=== PATIENT | female | born 1960 | race Native Hawaiian/Other Pacific Islander ===

== ENCOUNTER 2023-09-22 21:35 | Inpatient (IN) | payer BC, OTHER ==
[~2023-09-22] VITALS: Ht 162.6 cm; Wt 81.6 kg
[2023-09-22 22:30] VITALS: BP 98/46; TEMP 98.2; O2SAT 95
[2023-09-22] MEDS ORDERED: ASPI81TA31 GT (22:55)
[2023-09-22] MEDS ORDERED: MAGN400O6 GT (22:55)
[2023-09-22] MEDS ORDERED: INSU100V28 SQ (22:55)
[2023-09-22] MEDS ORDERED: APIX5TAB GT (22:55)
[2023-09-22] MEDS ORDERED: MICA100V IV (22:55)
[2023-09-22] MEDS ORDERED: ASCO500C18 GT (22:55)
[2023-09-22] MEDS ORDERED: FLUO20CA36 GT (22:55)
[2023-09-22] MEDS ORDERED: TRIA60LO7 TP (22:55)
[2023-09-22] MEDS ORDERED: HYDR25CA GT (22:55)
[2023-09-22] MEDS ORDERED: CHOL400C8 GT (22:55)
[2023-09-22] MEDS ORDERED: ACET-2605 GT (22:55)
[2023-09-22] MEDS ORDERED: NEPHRO GT (22:55)
[2023-09-22] MEDS ORDERED: MIRT-121 GT (22:55)
[2023-09-22] MEDS ORDERED: AMIO400T5 GT (22:55)
[2023-09-22] MEDS ORDERED: CLOT30CR24 TP (22:55)
[2023-09-22] MEDS ORDERED: ATOR40TA GT (22:55)
[2023-09-22] MEDS ORDERED: PANT40SU2 GT (22:55)
[2023-09-22] MEDS ORDERED: HYDROXYZINE PAMOATE 25 MG CAPSULE GT PRN (23:30)
[2023-09-22] MEDS ORDERED: MAGNESIUM HYDROXIDE 30 ML LIQUID UDC GT PRN (23:30)
[2023-09-23] MEDS: NEPRO 1000 ML GT PRN ×2 (00:39→01:00)
[2023-09-23] MEDS ORDERED: NEPRO 1000 ML GT PRN (00:59)
[2023-09-23] MEDS: diphenhydrAMINE 50 MG/1 ML VIAL IV PRN (02:56)
[2023-09-23 04:53] VITALS: O2SAT 97
[2023-09-23] MEDS ORDERED: DEXTROSE 50% 50 ML DISP.SYRIN IV PRN (05:30)
[2023-09-23] MEDS ORDERED: HYDROXYZINE PAMOATE 25 MG CAPSULE GT PRN (05:30)
[2023-09-23 05:41] VITALS: BP 95/38; TEMP 98.8; O2SAT 94
[2023-09-23] MEDS: BLOOD SUGAR DIAGNOSTIC 1 EACH STRIP VI SCH (06:23)
[2023-09-23] MEDS ORDERED: INSULIN REGULAR, HUMAN 300 UNIT/3 ML VIAL SQ SCH (07:30)
[2023-09-23 07:33] LABS: BASOPHILS % (AUTO) 0.5 % (0.0-2.0); EOSINOPHILS # (AUTO) 0.3 K/uL (0.0-0.7); EOSINOPHILS % (AUTO) 5.5 % (0.0-7.0); HEMATOCRIT 27.3 % (31.2-41.9); HEMOGLOBIN 8.6 g/dL (10.9-14.3); LYMPHOCYTES # (AUTO) 0.6 K/uL (0.8-4.8); LYMPHOCYTES % (AUTO) 10.3 % (20.5-51.5); MEAN CORPUSCULAR HEMOGLOBIN 24.1 uug (24.7-32.8); MEAN CORPUSCULAR HGB CONC 31 g/dL (32.3-35.6); MEAN CORPUSCULAR VOLUME 76.5 fL (75.5-95.3); MONOCYTES # (AUTO) 0.8 K/uL (0.1-1.30); MONOCYTES % (AUTO) 13.8 % (0.0-11.0); NEUTROPHILS # (AUTO) 4.2 K/uL (1.8-8.9); NEUTROPHILS % (AUTO) 69.9 % (38.5-71.5); PLATELET COUNT (AUTO) 171 K/uL (179-408); RED BLOOD CELL COUNT(AUTO) 3.57 MIL/uL (3.63-4.92); RED CELL DISTRIBUTION WIDTH 25.6 % (12.3-17.7)
[2023-09-23 07:38] LABS: DIFFERENTIAL COMMENT 1
[2023-09-23 08:03] LABS: THYROID STIMULATING HORMONE 1.528 mIU/mL (0.358-3.740)
[2023-09-23 08:18] LABS: ALBUMIN 2.4 g/dL (3.4-5.0); BILIRUBIN,TOTAL 0.7 mg/dL (0.2-1.0); CALCIUM 8.7 mg/dL (8.5-10.1); CREATININE 2.9 mg/dL (0.6-1.3); MAGNESIUM 2.1 mg/dL (1.8-2.4); PHOSPHOROUS 1.9 mg/dL (2.5-4.9); POTASSIUM 3.2 mmol/L (3.5-5.1); TOTAL PROTEIN, SERUM 6.6 g/dL (6.4-8.2)
[2023-09-23 09:00] VITALS: BP 129/59; TEMP 98.1; O2SAT 96
[2023-09-23] MEDS ORDERED: APIXABAN 5 MG TABLET GT SCH (09:00)
[2023-09-23] MEDS: FLUOXETINE HCL 20 MG CAPSULE GT SCH (09:00)
[2023-09-23] MEDS ORDERED: TRIAMCINOLONE ACETONIDE 0.1% 60 ML BOTTLE TP SCH (09:00)
[2023-09-23] MEDS ORDERED: CLOTRIMAZOLE 1% CREAM 30 GM TUBE TP SCH (09:00)
[2023-09-23] MEDS ORDERED: ALBUTEROL SULFATE 2.5 MG/3 ML NEBU NEB PRN (10:00)
[2023-09-23] MEDS ORDERED: IPRATROPIUM BROMIDE 0.5 MG/2.5 ML NEBU NEB PRN (10:00)
[2023-09-23] MEDS: ASPIRIN 81 MG TAB.CHEW GT SCH (10:08)
[2023-09-23] MEDS: ASCORBIC ACID 500 MG TABLET GT SCH (10:08)
[2023-09-23] MEDS: CHOLECALCIFEROL 1,000 UNIT TABLET GT SCH (10:08)
[2023-09-23] MEDS: AMIODARONE HCL 200 MG TABLET GT SCH (10:13)
[2023-09-23] MEDS: PANTOPRAZOLE ORAL SUSPENSION 40 MG SUSPDR.PKT GT SCH (10:14)
[2023-09-23] MEDS: POTASSIUM CHLORIDE 10 MEQ TAB.PRT.SR PO ONE (10:17)
[2023-09-23] MEDS: FEXOFENADINE HCL 180 MG TABLET PO SCH (10:20)
[2023-09-23] MEDS: TRIAMCINOLONE ACET 0.1% CREAM 15 GM TUBE TP PRN (12:06)
[2023-09-23] MEDS: CLOTRIMAZOLE 1% CREAM 30 GM TUBE TP SCH (12:10)
[2023-09-23] MEDS: ONDANSETRON 4 MG/2 ML VIAL IV ONE (14:56)
[2023-09-23] MEDS: MICAFUNGIN SODIUM 100 MG in IV NORMAL SALINE 100 ML IV SCH (16:16)
[2023-09-23 16:43] VITALS: BP 105/46; TEMP 97.8; O2SAT 97
[2023-09-23] MEDS ORDERED: ONDANSETRON 4 MG/2 ML VIAL IV PRN (18:34)
[2023-09-23 20:00] VITALS: BP 104/49; TEMP 98.4; O2SAT 95
[2023-09-23] MEDS: APIXABAN 5 MG TABLET GT SCH (21:00)
[2023-09-23 22:45] VITALS: O2SAT 98
[2023-09-23] MEDS: ATORVASTATIN 40 MG TABLET GT SCH (23:28)
[2023-09-23] MEDS: MIRTAZAPINE 15 MG TABLET GT SCH (23:28)
[2023-09-24 04:03] VITALS: O2SAT 98
[2023-09-24] MEDS ORDERED: REMEDY ESSENTIAL ZINC PASTE 113 GM TOP PRN (05:30)
[2023-09-24] MEDS: diphenhydrAMINE 50 MG/1 ML VIAL IV ONE (05:47)
[2023-09-24 06:20] VITALS: BP 93/32; TEMP 97.9; O2SAT 95
[2023-09-24] MEDS: INSULIN REGULAR, HUMAN 300 UNIT/3 ML VIAL SQ PRN (08:27)
[2023-09-24 08:41] LABS: ABG BASE EXCESS 7.2 mmol/L (-2.0-2.0); ABG PCO2 47.2 mmHg (35.0-48.0); ABG PH 7.449 (7.340-7.440); ABG PO2 72.3 mmHg (75.0-100.0); ABG SITE RIGHT RADIAL; ABG TOTAL HEMOGLOBIN 9.3 G/dL (12.0-16.0); COHb 0.5 % (0.0-3.9); MetHb 0.3 % (0.0-1.5); O2Hb 93.9 % (94.0-97.0)
[2023-09-24] MEDS ORDERED: LORATADINE 10 MG TABLET PO SCH (09:00)
[2023-09-24] MEDS ORDERED: ONDANSETRON 4 MG/2 ML VIAL IV PRN (10:15)
[2023-09-24 16:23] VITALS: BP 107/42; TEMP 98.5; O2SAT 96; O2SAT 97
[2023-09-24 20:38] VITALS: BP 116/48; TEMP 98.3; O2SAT 96
[2023-09-24] MEDS ORDERED: MIRTAZAPINE 15 MG TABLET GT SCH (21:00)
[2023-09-24] MEDS: predniSONE 20 MG TABLET PO SCH (23:05)
[2023-09-25] MEDS ORDERED: hydrOXYzine HCL 25 MG TABLET ONE (00:32)
[2023-09-25] MEDS: hydrOXYzine HCL 25 MG TABLET PO ONE (01:23)
[2023-09-25] MEDS ORDERED: GUAIFENESIN/DEXTROMETHORPHAN 5 ML UDC PO PRN ×2 (02:00)
[2023-09-25] MEDS ORDERED: OLAN2.5T3 PO (05:09)
[2023-09-25 06:13] VITALS: BP 119/48; TEMP 98.2; O2SAT 95
[2023-09-25 07:34] LABS: EOSINOPHILS # (AUTO) 0.2 K/uL (0.0-0.7); LYMPHOCYTES # (AUTO) 0.4 K/uL (0.8-4.8); MONOCYTES # (AUTO) 0.4 K/uL (0.1-1.30); NEUTROPHILS # (AUTO) 0.2 K/uL (1.8-8.9); RED BLOOD CELL COUNT(AUTO) 3.44 MIL/uL (3.63-4.92)
[2023-09-25 07:36] LABS: BASOPHILS % (AUTO) 1.1 % (0.0-2.0); HEMATOCRIT 26.1 % (31.2-41.9); HEMOGLOBIN 8.3 g/dL (10.9-14.3); LYMPHOCYTES % (AUTO) 35.4 % (20.5-51.5); MEAN CORPUSCULAR HGB CONC 32 g/dL (32.3-35.6); MONOCYTES % (AUTO) 29.2 % (0.0-11.0); NEUTROPHILS % (AUTO) 19.3 % (38.5-71.5); PLATELET COUNT (AUTO) 194 K/uL (179-408)
[2023-09-25 07:40] LABS: DIFFERENTIAL COMMENT 1; WHITE BLOOD COUNT (AUTO) 1.2 K/uL (3.8-11.8)
[2023-09-25 07:42] LABS: ALBUMIN 2.3 g/dL (3.4-5.0); BILIRUBIN,TOTAL 0.8 mg/dL (0.2-1.0); CALCIUM 9.6 mg/dL (8.5-10.1); CREATININE 4.7 mg/dL (0.6-1.3); MAGNESIUM 2.4 mg/dL (1.8-2.4); PHOSPHOROUS 2.6 mg/dL (2.5-4.9); POTASSIUM 3.8 mmol/L (3.5-5.1); TOTAL PROTEIN, SERUM 6.2 g/dL (6.4-8.2)
[2023-09-25 08:47] LABS: BAND % (MANUAL) 2 % (0-10); EOSINOPHILS % (MANUAL) 12 % (0-8); LYMPHOCYTES % (MANUAL) 40 % (20-40); MONOCYTES % (MANUAL) 23 % (2-10); NEUTROPHILS % (MANUAL) 23 % (42-75); PLATELET ESTIMATE ADEQUATE
[2023-09-25 08:48] LABS: ANISOCYTOSIS 1+; HYPOCHROMASIA 1+
[2023-09-25 08:49] LABS: OVALOCYTES 1+
[2023-09-25] MEDS: LORATADINE 10 MG TABLET PO SCH (09:51)
[2023-09-25] MEDS ORDERED: REMEDY ESSENTIAL ZINC PASTE 113 GM TOP PRN (11:30)
[2023-09-25 16:00] VITALS: BP 93/49; TEMP 97.8; O2SAT 97
[2023-09-25] MEDS: INSULIN REGULAR, HUMAN 300 UNITS/3 ML VIAL SQ PRN (17:17)
[2023-09-25 19:55] VITALS: BP 111/44; TEMP 97.4; O2SAT 95
[2023-09-26 05:58] VITALS: BP 93/47; TEMP 97.6; O2SAT 97
[2023-09-26 07:37] LABS: BASOPHILS % (AUTO) 0.9 % (0.0-2.0); EOSINOPHILS # (AUTO) 1.5 K/uL (0.0-0.7); HEMATOCRIT 26.2 % (31.2-41.9); HEMOGLOBIN 8.3 g/dL (10.9-14.3); LYMPHOCYTES # (AUTO) 0.8 K/uL (0.8-4.8); LYMPHOCYTES % (AUTO) 21.7 % (20.5-51.5); MEAN CORPUSCULAR HEMOGLOBIN 24.1 uug (24.7-32.8); MEAN CORPUSCULAR HGB CONC 32 g/dL (32.3-35.6); MEAN CORPUSCULAR VOLUME 76.4 fL (75.5-95.3); MONOCYTES # (AUTO) 1.3 K/uL (0.1-1.30); MONOCYTES % (AUTO) 35.4 % (0.0-11.0); NEUTROPHILS # (AUTO) 0.1 K/uL (1.8-8.9); PLATELET COUNT (AUTO) 218 K/uL (179-408); RED BLOOD CELL COUNT(AUTO) 3.43 MIL/uL (3.63-4.92); RED CELL DISTRIBUTION WIDTH 25.1 % (12.3-17.7); WHITE BLOOD COUNT (AUTO) 3.8 K/uL (3.8-11.8)
[2023-09-26 07:40] LABS: DIFFERENTIAL COMMENT 1
[2023-09-26 07:47] LABS: CALCIUM 8.8 mg/dL (8.5-10.1); CREATININE 3.1 mg/dL (0.6-1.3); MAGNESIUM 2.2 mg/dL (1.8-2.4); PHOSPHOROUS 1.6 mg/dL (2.5-4.9)
[2023-09-26 07:52] LABS: POTASSIUM 2.8 mmol/L (3.5-5.1)
[2023-09-26 08:06] LABS: HEPATITIS B SURFACE AB, QUAL Reactive (.); HEPATITIS Be ANTIGEN Negative (Negative); HEPATITIS C VIRUS ANTIBODY Non Reactive (Non Reactive)
[2023-09-26] MEDS: POTASSIUM CHLORIDE 20 MEQ POWDER PACKET GT ONE (11:26)
[2023-09-26] MEDS: AMIODARONE HCL 200 MG TABLET PO SCH (11:27)
[2023-09-26 13:19] LABS: ANISOCYTOSIS 2+; EOSINOPHILS % (MANUAL) 44 % (0-8); HYPOCHROMASIA 1+; LYMPHOCYTES % (MANUAL) 28 % (20-40); MONOCYTES % (MANUAL) 22 % (2-10); NEUTROPHILS % (MANUAL) 6 % (42-75); PLATELET ESTIMATE ADEQUATE
[2023-09-26 16:00] VITALS: BP 114/53; TEMP 97.8; O2SAT 97
[2023-09-26] MEDS ORDERED: ONDANSETRON 4 MG/2 ML VIAL IV PRN (16:30)
[2023-09-26 18:06] LABS: CREATININE 3.7 mg/dL (0.6-1.3); POTASSIUM 3.7 mmol/L (3.5-5.1)
[2023-09-26 20:19] VITALS: BP 100/36; TEMP 98.4; O2SAT 93
[2023-09-26] MEDS: METOCLOPRAMIDE HCL 10 MG/2 ML VIAL IV ONE (22:56)
[2023-09-27 05:30] VITALS: BP 111/46; TEMP 98.3; O2SAT 94
[2023-09-27 07:38] LABS: ALBUMIN 2.3 g/dL (3.4-5.0); BILIRUBIN,TOTAL 0.8 mg/dL (0.2-1.0); CALCIUM 9.3 mg/dL (8.5-10.1); POTASSIUM 3.5 mmol/L (3.5-5.1); TOTAL PROTEIN, SERUM 6.2 g/dL (6.4-8.2)
[2023-09-27 16:28] VITALS: O2SAT 96
[2023-09-27 16:41] VITALS: BP 108/45; TEMP 99.2; O2SAT 97
[2023-09-27 20:00] VITALS: BP 109/43; TEMP 98.4; O2SAT 95
[2023-09-27 22:15] VITALS: O2SAT 98
[2023-09-28 04:07] VITALS: O2SAT 98
[2023-09-28 04:20] VITALS: BP 110/47; TEMP 98.5; O2SAT 92
[2023-09-28 07:21] LABS: ALBUMIN 2.3 g/dL (3.4-5.0); BILIRUBIN,TOTAL 0.8 mg/dL (0.2-1.0); CALCIUM 8.8 mg/dL (8.5-10.1); CREATININE 3.7 mg/dL (0.6-1.3); POTASSIUM 3.8 mmol/L (3.5-5.1); TOTAL PROTEIN, SERUM 6.7 g/dL (6.4-8.2)
[2023-09-28 16:33] VITALS: O2SAT 97
[2023-09-28 17:03] VITALS: BP 122/49; TEMP 98.2; O2SAT 96
[2023-09-29 05:35] VITALS: BP 114/50; TEMP 98; O2SAT 96
[2023-09-29 05:42] VITALS: O2SAT 98
[2023-09-29 07:55] LABS: ALBUMIN 2.2 g/dL (3.4-5.0); BILIRUBIN,TOTAL 0.7 mg/dL (0.2-1.0); CALCIUM 9.1 mg/dL (8.5-10.1); CREATININE 4.8 mg/dL (0.6-1.3); TOTAL PROTEIN, SERUM 6.6 g/dL (6.4-8.2)
[2023-09-29 08:18] VITALS: BP 109/52; TEMP 97.8; O2SAT 95
[2023-09-29] MEDS ORDERED: FLUOXETINE HCL 20 MG CAPSULE GT SCH (09:00)
[2023-09-29] MEDS ORDERED: ACETAMINOPHEN 650 MG/20.3 ML LIQUID UDC GT PRN (09:00)
[2023-09-29] MEDS ORDERED: ACETAMINOPHEN 325 MG TABLET PO PRN (09:00)
[2023-09-29] MEDS: ACETAMINOPHEN 650 MG/20.3 ML LIQUID UDC PO PRN (09:52)
[2023-09-29 16:02] VITALS: BP 100/52; TEMP 96.6; O2SAT 95
[2023-09-29] MEDS ORDERED: DIATR MEGLU/DIATRIZOATE SODIUM 30 ML BOTTLE ONE (19:49)
[2023-09-29 20:38] VITALS: BP 93/48; TEMP 97.7; O2SAT 97
[2023-09-30 04:23] VITALS: O2SAT 98
[2023-09-30 06:00] VITALS: BP 104/49; TEMP 97.5; O2SAT 97
[2023-09-30 06:42] LABS: ALBUMIN 2.3 g/dL (3.4-5.0); BILIRUBIN,TOTAL 0.6 mg/dL (0.2-1.0); CREATININE 3.5 mg/dL (0.6-1.3); PHOSPHOROUS 2.3 mg/dL (2.5-4.9); POTASSIUM 3.9 mmol/L (3.5-5.1); TOTAL PROTEIN, SERUM 7.1 g/dL (6.4-8.2)
[2023-09-30 06:46] LABS: CALCIUM 9.2 mg/dL (8.5-10.1)
[2023-09-30 06:56] LABS: BASOPHILS # (AUTO) 0.1 K/UL (0.0-0.2); BASOPHILS % (AUTO) 1.2 % (0.0-2.0); EOSINOPHILS # (AUTO) 1.4 K/uL (0.0-0.7); EOSINOPHILS % (AUTO) 15.2 % (0.0-7.0); HEMATOCRIT 30.5 % (31.2-41.9); HEMOGLOBIN 9.6 g/dL (10.9-14.3); LYMPHOCYTES # (AUTO) 1.1 K/uL (0.8-4.8); LYMPHOCYTES % (AUTO) 12.2 % (20.5-51.5); MEAN CORPUSCULAR HEMOGLOBIN 23.8 uug (24.7-32.8); MEAN CORPUSCULAR HGB CONC 31 g/dL (32.3-35.6); MEAN CORPUSCULAR VOLUME 75.8 fL (75.5-95.3); MONOCYTES # (AUTO) 1.8 K/uL (0.1-1.30); NEUTROPHILS # (AUTO) 4.9 K/uL (1.8-8.9); NEUTROPHILS % (AUTO) 52.4 % (38.5-71.5); PLATELET COUNT (AUTO) 169 K/uL (179-408); RED BLOOD CELL COUNT(AUTO) 4.02 MIL/uL (3.63-4.92); RED CELL DISTRIBUTION WIDTH 24.1 % (12.3-17.7); WHITE BLOOD COUNT (AUTO) 9.3 K/uL (3.8-11.8)
[2023-09-30 06:57] LABS: DIFFERENTIAL COMMENT 1
[2023-09-30] MEDS ORDERED: CALAMINE LOTION 120 ML BOTTLE TOP PRN (08:00)
[2023-09-30 08:23] LABS: BAND % (MANUAL) 19 % (0-10); EOSINOPHILS % (MANUAL) 17 % (0-8); LYMPHOCYTES % (MANUAL) 15 % (20-40); METAMYELOCYTES % 2 % (0-1); MONOCYTES % (MANUAL) 13 % (2-10); MYELOCYTES % 3 % (0-0); NEUTROPHILS % (MANUAL) 31 % (42-75); PLATELET ESTIMATE ADEQUATE
[2023-09-30 08:25] LABS: ANISOCYTOSIS 2+
[2023-09-30 08:26] LABS: OVALOCYTES 1+
[2023-09-30 08:27] LABS: HYPOCHROMASIA 1+
[2023-09-30] MEDS ORDERED: AMIODARONE HCL 200 MG TABLET PO SCH (09:00)
[2023-09-30] MEDS: METOCLOPRAMIDE HCL 10 MG/2 ML VIAL IV PRN (12:11)
[2023-09-30 16:30] VITALS: BP 109/51; TEMP 97.8; O2SAT 98
[2023-09-30] MEDS: NEUTRA PHOS PACKET PO ONE (17:39)
[2023-09-30 19:40] VITALS: BP 117/52; TEMP 97.8; O2SAT 96
[2023-09-30 22:11] VITALS: O2SAT 98
[2023-10-01 00:12] VITALS: O2SAT 98
[2023-10-01 06:02] VITALS: BP 117/54; TEMP 98.9; O2SAT 96
[2023-10-01 08:40] LABS: LYMPHOCYTES # (AUTO) 1.4 K/uL (0.8-4.8)
[2023-10-01 08:45] LABS: BASOPHILS # (AUTO) 0.1 K/UL (0.0-0.2); BASOPHILS % (AUTO) 0.9 % (0.0-2.0); EOSINOPHILS # (AUTO) 1.4 K/uL (0.0-0.7); EOSINOPHILS % (AUTO) 11.4 % (0.0-7.0); HEMATOCRIT 31.2 % (31.2-41.9); HEMOGLOBIN 9.8 g/dL (10.9-14.3); LYMPHOCYTES % (AUTO) 10.9 % (20.5-51.5); MEAN CORPUSCULAR HEMOGLOBIN 23.5 uug (24.7-32.8); MEAN CORPUSCULAR HGB CONC 31 g/dL (32.3-35.6); MEAN CORPUSCULAR VOLUME 75.1 fL (75.5-95.3); MONOCYTES % (AUTO) 16.3 % (0.0-11.0); NEUTROPHILS # (AUTO) 7.5 K/uL (1.8-8.9); NEUTROPHILS % (AUTO) 60.5 % (38.5-71.5); PLATELET COUNT (AUTO) 193 K/uL (179-408); RED BLOOD CELL COUNT(AUTO) 4.15 MIL/uL (3.63-4.92); RED CELL DISTRIBUTION WIDTH 23.9 % (12.3-17.7); WHITE BLOOD COUNT (AUTO) 12.4 K/uL (3.8-11.8)
[2023-10-01 08:47] LABS: ALBUMIN 2.5 g/dL (3.4-5.0); BILIRUBIN,DIRECT 0.3 mg/dL (0.0-0.2); BILIRUBIN,TOTAL 0.6 mg/dL (0.2-1.0); CALCIUM 9.6 mg/dL (8.5-10.1); CREATININE 4.8 mg/dL (0.6-1.3); POTASSIUM 4.2 mmol/L (3.5-5.1)
[2023-10-01 08:55] LABS: DIFFERENTIAL COMMENT 1
[2023-10-01 14:00] VITALS: O2SAT 98
[2023-10-01 15:43] VITALS: BP 100/48; TEMP 97.6; O2SAT 96
[2023-10-01 17:31] LABS: BAND % (MANUAL) 12 % (0-10); EOSINOPHILS % (MANUAL) 8 % (0-8); LYMPHOCYTES % (MANUAL) 13 % (20-40); METAMYELOCYTES % 8 % (0-1); MONOCYTES % (MANUAL) 20 % (2-10); NEUTROPHILS % (MANUAL) 19 % (42-75)
[2023-10-01 17:32] LABS: HYPOCHROMASIA 1+; MYELOCYTES % 8 % (0-0); PLATELET ESTIMATE ADEQUATE; PROMYELOCYTES % 12 %
[2023-10-01 17:33] LABS: ANISOCYTOSIS 3+
[2023-10-01 20:01] VITALS: BP 114/61; TEMP 97.4; O2SAT 96
[2023-10-02] VITALS (7 sets, daily range): BP systolic 106–138; BP diastolic 48–60; TEMP 97.5–98.1; O2SAT 94–99
[2023-10-02 06:43] LABS: CREATININE 3.5 mg/dL (0.6-1.3); POTASSIUM 3.6 mmol/L (3.5-5.1)
[2023-10-02 07:07] LABS: HEPATITIS A AB, IgM Negative (Negative); HEPATITIS A AB, TOTAL Positive (Negative); HEPATITIS B CORE AB, IgM Negative (Negative); HEPATITIS B CORE AB, TOTAL Negative (Negative); HEPATITIS B SURFACE AB, QUAL Reactive (.); HEPATITIS B SURFACE AG Negative (Negative)
[2023-10-02] MEDS ORDERED: APIXABAN 2.5 MG TABLET PO SCH (09:15)
[2023-10-02] MEDS: APIXABAN 5 MG TABLET GT SCH (10:03)
[2023-10-03 07:12] LABS: CALCIUM 9.9 mg/dL (8.5-10.1); CREATININE 5.1 mg/dL (0.6-1.3)
[2023-10-03 07:18] LABS: ALBUMIN 2.6 g/dL (3.4-5.0); BILIRUBIN,DIRECT 0.2 mg/dL (0.0-0.2); BILIRUBIN,TOTAL 0.6 mg/dL (0.2-1.0)
[2023-10-03 07:25] VITALS: BP 117/50; TEMP 98; O2SAT 95
[2023-10-03 15:17] VITALS: BP 110/44; TEMP 97.7; O2SAT 96
[2023-10-03 20:00] VITALS: BP 107/58; TEMP 97.9; O2SAT 98
[2023-10-04 01:50] VITALS: O2SAT 97
[2023-10-04 06:03] VITALS: BP 112/54; TEMP 97.9; O2SAT 94
[2023-10-04 06:43] LABS: CALCIUM 9.3 mg/dL (8.5-10.1); POTASSIUM 3.8 mmol/L (3.5-5.1)
[2023-10-04 06:54] LABS: ALBUMIN 2.6 g/dL (3.4-5.0); BILIRUBIN,DIRECT 0.2 mg/dL (0.0-0.2); BILIRUBIN,TOTAL 0.7 mg/dL (0.2-1.0); TOTAL PROTEIN, SERUM 6.8 g/dL (6.4-8.2)
[2023-10-04 16:22] VITALS: BP 107/51; TEMP 98.1; O2SAT 98
[2023-10-04 20:10] VITALS: BP 120/74; TEMP 97.8; O2SAT 97
[2023-10-04] MEDS: CYCLOBENZAPRINE HCL 10 MG TABLET PO PRN (22:22)
[2023-10-05 00:36] VITALS: O2SAT 97
[2023-10-05 05:26] VITALS: BP 108/45; TEMP 97.6; O2SAT 96
[2023-10-05 06:35] LABS: CALCIUM 9.6 mg/dL (8.5-10.1); CREATININE 5.4 mg/dL (0.6-1.3); POTASSIUM 3.8 mmol/L (3.5-5.1)
[2023-10-05 06:41] LABS: ALBUMIN 2.6 g/dL (3.4-5.0); BILIRUBIN,DIRECT 0.2 mg/dL (0.0-0.2); BILIRUBIN,TOTAL 0.6 mg/dL (0.2-1.0); TOTAL PROTEIN, SERUM 6.5 g/dL (6.4-8.2)
[2023-10-05 08:14] VITALS: BP 105/69; TEMP 97.8
[2023-10-05 08:52] VITALS: BP 106/49; TEMP 97.8; O2SAT 98
[2023-10-05 16:14] VITALS: BP 104/50; TEMP 97.6; O2SAT 96
[2023-10-05] MEDS: ALBUMIN HUMAN 25% 100 ML IV PRN (16:37)
[2023-10-05 20:25] VITALS: BP 93/42; TEMP 97.7; O2SAT 98
[2023-10-06 06:13] VITALS: BP 93/46; TEMP 98.5; O2SAT 97
[2023-10-06 06:46] LABS: CALCIUM 9.3 mg/dL (8.5-10.1); CREATININE 3.2 mg/dL (0.6-1.3); POTASSIUM 3.7 mmol/L (3.5-5.1)
[2023-10-06] MEDS ORDERED: MIDAZOLAM HCL 2 MG/2 ML VIAL IV PRN (10:45)
[2023-10-06] MEDS ORDERED: FENTANYL CITRATE 100 MCG/2 ML AMPUL IV PRN (10:45)
[2023-10-06] MEDS ORDERED: NALOXONE HCL 0.4 MG/ML AMPUL IV PRN (11:00)
[2023-10-06] MEDS: PROTEIN SUPPLEMENT (PROSTAT) 30 ML LIQUID GT SCH (13:28)
[2023-10-06 15:22] VITALS: O2SAT 97
[2023-10-06] MEDS: MORPHINE SULFATE 2 MG/1 ML DISP.SYRIN IVP PRN (15:41)
[2023-10-06 16:30] VITALS: BP 114/47; TEMP 98.2; O2SAT 95
[2023-10-06 20:00] VITALS: BP 99/46; TEMP 97.8; O2SAT 95
[2023-10-06 20:41] VITALS: O2SAT 97
[2023-10-07 00:16] VITALS: O2SAT 96
[2023-10-07 06:54] VITALS: BP 110/50; TEMP 97.8; O2SAT 96
[2023-10-07 07:08] LABS: BASOPHILS # (AUTO) 0.1 K/UL (0.0-0.2); BASOPHILS % (AUTO) 0.9 % (0.0-2.0); EOSINOPHILS # (AUTO) 1.4 K/uL (0.0-0.7); EOSINOPHILS % (AUTO) 12.8 % (0.0-7.0); HEMATOCRIT 27.9 % (31.2-41.9); HEMOGLOBIN 8.5 g/dL (10.9-14.3); LYMPHOCYTES # (AUTO) 1.2 K/uL (0.8-4.8); LYMPHOCYTES % (AUTO) 10.3 % (20.5-51.5); MEAN CORPUSCULAR HEMOGLOBIN 23.2 uug (24.7-32.8); MEAN CORPUSCULAR HGB CONC 31 g/dL (32.3-35.6); MEAN CORPUSCULAR VOLUME 76.1 fL (75.5-95.3); MONOCYTES # (AUTO) 1.6 K/uL (0.1-1.30); MONOCYTES % (AUTO) 14.2 % (0.0-11.0); NEUTROPHILS % (AUTO) 61.8 % (38.5-71.5); PLATELET COUNT (AUTO) 144 K/uL (179-408); RED BLOOD CELL COUNT(AUTO) 3.67 MIL/uL (3.63-4.92); RED CELL DISTRIBUTION WIDTH 23.7 % (12.3-17.7); WHITE BLOOD COUNT (AUTO) 11.3 K/uL (3.8-11.8)
[2023-10-07 07:23] LABS: BILIRUBIN,DIRECT 0.2 mg/dL (0.0-0.2); BILIRUBIN,TOTAL 0.7 mg/dL (0.2-1.0); CALCIUM 9.6 mg/dL (8.5-10.1); CREATININE 4.7 mg/dL (0.6-1.3); MAGNESIUM 2.4 mg/dL (1.8-2.4); PHOSPHOROUS 2.9 mg/dL (2.5-4.9); POTASSIUM 3.8 mmol/L (3.5-5.1); TOTAL PROTEIN, SERUM 6.8 g/dL (6.4-8.2)
[2023-10-07 07:27] LABS: DIFFERENTIAL COMMENT 1
[2023-10-07] MEDS ORDERED: AMIODARONE HCL 200 MG TABLET PO SCH (09:00)
[2023-10-07 16:47] VITALS: BP 105/56; TEMP 98.2; O2SAT 99
[2023-10-07 20:00] VITALS: BP 109/56; TEMP 98.2; O2SAT 96
[2023-10-08 00:26] VITALS: O2SAT 96
[2023-10-08 06:00] VITALS: BP 103/44; TEMP 97.9; O2SAT 94
[2023-10-08 09:14] VITALS: BP 91/40; TEMP 97.9; O2SAT 95
[2023-10-08] MEDS: APIXABAN 5 MG TABLET GT SCH (12:13)
[2023-10-08 15:42] VITALS: BP 90/43; TEMP 97.9; O2SAT 95
[2023-10-08 20:00] VITALS: BP 97/46; TEMP 98.1; O2SAT 97
[2023-10-09 07:12] VITALS: BP 99/52; TEMP 98.5; O2SAT 95
[2023-10-09 07:19] LABS: ALBUMIN 3.2 g/dL (3.4-5.0); BILIRUBIN,TOTAL 0.7 mg/dL (0.2-1.0); CREATININE 4.7 mg/dL (0.6-1.3); MAGNESIUM 2.6 mg/dL (1.8-2.4); POTASSIUM 3.3 mmol/L (3.5-5.1); TOTAL PROTEIN, SERUM 6.8 g/dL (6.4-8.2)
[2023-10-09 07:37] LABS: BASOPHILS # (AUTO) 0.1 K/UL (0.0-0.2); BASOPHILS % (AUTO) 0.6 % (0.0-2.0); DIFFERENTIAL COMMENT 0; EOSINOPHILS % (AUTO) 16.5 % (0.0-7.0); HEMATOCRIT 27.5 % (31.2-41.9); HEMOGLOBIN 8.4 g/dL (10.9-14.3); LYMPHOCYTES # (AUTO) 1.2 K/uL (0.8-4.8); LYMPHOCYTES % (AUTO) 9.8 % (20.5-51.5); MEAN CORPUSCULAR HGB CONC 31 g/dL (32.3-35.6); MEAN CORPUSCULAR VOLUME 75.5 fL (75.5-95.3); MONOCYTES # (AUTO) 1.7 K/uL (0.1-1.30); MONOCYTES % (AUTO) 14.5 % (0.0-11.0); NEUTROPHILS % (AUTO) 58.6 % (38.5-71.5); PLATELET COUNT (AUTO) 155 K/uL (179-408); RED BLOOD CELL COUNT(AUTO) 3.65 MIL/uL (3.63-4.92); RED CELL DISTRIBUTION WIDTH 23.5 % (12.3-17.7); WHITE BLOOD COUNT (AUTO) 11.9 K/uL (3.8-11.8)
[2023-10-09] MEDS: APIXABAN 2.5 MG TABLET PO SCH (10:13)
[2023-10-09 15:43] VITALS: BP 97/45; TEMP 97.8; O2SAT 97
[2023-10-09 20:00] VITALS: BP 108/56; TEMP 98.3; O2SAT 96
[2023-10-09] MEDS: ATORVASTATIN 10 MG TABLET PO SCH (22:44)
[2023-10-10 02:17] VITALS: O2SAT 97
[2023-10-10 09:48] VITALS: BP 98/48; TEMP 98.1; O2SAT 97
[2023-10-10 12:00] VITALS: BP 91/43; TEMP 98.1; O2SAT 98
[2023-10-10] MEDS ORDERED: GUAIFENESIN/DEXTROMETHORPHAN 5 ML UDC GT PRN (15:15)
[2023-10-10] MEDS ORDERED: ACETAMINOPHEN 650 MG/20.3 ML LIQUID UDC GT PRN (15:15)
[2023-10-10 16:00] VITALS: BP 90/40; TEMP 98.2; O2SAT 97
[2023-10-10 20:14] VITALS: BP 99/42; TEMP 98.1; O2SAT 96
[2023-10-10] MEDS: ATORVASTATIN 10 MG TABLET GT SCH (21:19)
[2023-10-10] MEDS: APIXABAN 2.5 MG TABLET GT SCH (21:21)
[2023-10-10] MEDS: AMIODARONE HCL 200 MG TABLET GT SCH (21:23)
[2023-10-11 04:30] VITALS: O2SAT 97
[2023-10-11 06:15] VITALS: BP 99/43; TEMP 98.6; O2SAT 96
[2023-10-11 09:00] VITALS: BP_SYST 129; BP_SYST 82; BP_DIAS 47
[2023-10-11 20:00] VITALS: BP 103/41; TEMP 97.5; O2SAT 95
[2023-10-11] MEDS: CYCLOBENZAPRINE HCL 10 MG TABLET GT PRN (20:53)
[2023-10-12] MEDS: MELATONIN 3 MG TABLET PO SCH ×2 (00:46→22:58)
[2023-10-12 03:46] VITALS: O2SAT 98
[2023-10-12 05:20] VITALS: BP 93/41; TEMP 97.9; O2SAT 96
[2023-10-12 06:12] LABS: BASOPHILS # (AUTO) 0.1 K/UL (0.0-0.2); BASOPHILS % (AUTO) 0.8 % (0.0-2.0); EOSINOPHILS % (AUTO) 24.6 % (0.0-7.0); HEMATOCRIT 24.8 % (31.2-41.9); HEMOGLOBIN 7.6 g/dL (10.9-14.3); LYMPHOCYTES % (AUTO) 12.4 % (20.5-51.5); MEAN CORPUSCULAR HEMOGLOBIN 23.4 uug (24.7-32.8); MEAN CORPUSCULAR HGB CONC 31 g/dL (32.3-35.6); MONOCYTES # (AUTO) 1.6 K/uL (0.1-1.30); MONOCYTES % (AUTO) 18.7 % (0.0-11.0); NEUTROPHILS # (AUTO) 3.6 K/uL (1.8-8.9); NEUTROPHILS % (AUTO) 43.5 % (38.5-71.5); PLATELET COUNT (AUTO) 144 K/uL (179-408); RED BLOOD CELL COUNT(AUTO) 3.26 MIL/uL (3.63-4.92); RED CELL DISTRIBUTION WIDTH 23.1 % (12.3-17.7); WHITE BLOOD COUNT (AUTO) 8.3 K/uL (3.8-11.8)
[2023-10-12 06:15] LABS: DIFFERENTIAL COMMENT 1
[2023-10-12 06:26] LABS: ALBUMIN 3.5 g/dL (3.4-5.0); BILIRUBIN,TOTAL 0.7 mg/dL (0.2-1.0); CALCIUM 10.4 mg/dL (8.5-10.1); CREATININE 4.2 mg/dL (0.6-1.3); MAGNESIUM 2.6 mg/dL (1.8-2.4); PHOSPHOROUS 2.1 mg/dL (2.5-4.9); POTASSIUM 3.4 mmol/L (3.5-5.1); TOTAL PROTEIN, SERUM 6.7 g/dL (6.4-8.2)
[2023-10-12] MEDS: LORATADINE 10 MG TABLET GT SCH (09:59)
[2023-10-12 15:51] VITALS: BP 101/46; TEMP 97.6; O2SAT 95
[2023-10-12 16:08] VITALS: O2SAT 95
[2023-10-12 20:10] VITALS: BP 104/50; TEMP 97.7; O2SAT 99
[2023-10-13 04:57] VITALS: O2SAT 98
[2023-10-13 05:55] VITALS: BP 101/51; TEMP 97.6; O2SAT 97
[2023-10-13 16:04] VITALS: BP 98/48; TEMP 97.7; O2SAT 97
[2023-10-13 19:25] VITALS: BP 108/51; TEMP 97.9; O2SAT 98
[2023-10-14 06:30] VITALS: BP 110/42; TEMP 97.3; O2SAT 97
[2023-10-14 08:00] VITALS: BP 102/58; TEMP 98.1; O2SAT 92
[2023-10-14 13:54] VITALS: O2SAT 96
[2023-10-14 15:49] VITALS: BP 101/55; TEMP 97.7; O2SAT 97
[2023-10-14] MEDS ORDERED: GUAIFENESIN/DEXTROMETHORPHAN 5 ML UDC PO PRN (19:00)
[2023-10-14] MEDS: AMIODARONE HCL 200 MG TABLET PO SCH (21:04)
[2023-10-14] MEDS: ATORVASTATIN 10 MG TABLET PO SCH (21:04)
[2023-10-14] MEDS: APIXABAN 2.5 MG TABLET PO SCH (21:07)
[2023-10-14 21:16] VITALS: O2SAT 96
[2023-10-15] MEDS: CYCLOBENZAPRINE HCL 10 MG TABLET PO PRN (04:03)
[2023-10-15 07:32] LABS: BASOPHILS # (AUTO) 0.1 K/UL (0.0-0.2); BASOPHILS % (AUTO) 0.9 % (0.0-2.0); EOSINOPHILS # (AUTO) 2.2 K/uL (0.0-0.7); HEMATOCRIT 27.6 % (31.2-41.9); HEMOGLOBIN 8.8 g/dL (10.9-14.3); LYMPHOCYTES # (AUTO) 1.6 K/uL (0.8-4.8); LYMPHOCYTES % (AUTO) 24.6 % (20.5-51.5); MEAN CORPUSCULAR HEMOGLOBIN 24.3 uug (24.7-32.8); MEAN CORPUSCULAR HGB CONC 32 g/dL (32.3-35.6); MONOCYTES % (AUTO) 31.5 % (0.0-11.0); NEUTROPHILS # (AUTO) 0.6 K/uL (1.8-8.9); NEUTROPHILS % (AUTO) 8.8 % (38.5-71.5); PLATELET COUNT (AUTO) 164 K/uL (179-408); RED BLOOD CELL COUNT(AUTO) 3.63 MIL/uL (3.63-4.92); RED CELL DISTRIBUTION WIDTH 22.3 % (12.3-17.7); WHITE BLOOD COUNT (AUTO) 6.3 K/uL (3.8-11.8)
[2023-10-15 07:38] LABS: DIFFERENTIAL COMMENT 1; EOSINOPHILS % (AUTO) 34.2 % (0.0-7.0)
[2023-10-15 07:51] LABS: CALCIUM 12.1 mg/dL (8.5-10.1); CREATININE 5.8 mg/dL (0.6-1.3); PHOSPHOROUS 2.9 mg/dL (2.5-4.9); POTASSIUM 3.4 mmol/L (3.5-5.1)
[2023-10-15 08:03] LABS: ABG BASE EXCESS 3.6 mmol/L (-2.0-2.0); ABG HCO3 27.9 mmol/L (22.0-26.0); ABG PCO2 40.9 mmHg (35.0-48.0); ABG PH 7.451 (7.340-7.440); ABG PO2 64.9 mmHg (75.0-100.0); ABG SITE RIGHT RADIAL; ABG TOTAL HEMOGLOBIN 9.3 G/dL (12.0-16.0); AaDO2 93.6 mmHg; MetHb 0.2 % (0.0-1.5); O2Hb 91.8 % (94.0-97.0)
[2023-10-15] MEDS: OXYBUTYNIN XL 5 MG TABSR PO SCH (09:00)
[2023-10-15] MEDS: PANTOPRAZOLE SODIUM 40 MG TABLET.DR PO SCH (09:01)
[2023-10-15] MEDS: CHOLECALCIFEROL 1,000 UNIT TABLET PO SCH (09:02)
[2023-10-15] MEDS: ASCORBIC ACID 500 MG TABLET PO SCH (09:02)
[2023-10-15 10:28] LABS: *BILIRUBIN,URIN 1+ (NEGATIVE); *BLOOD, URINE 3+ (NEGATIVE); *CLARITY,URINE TURBID (CLEAR); *COLOR,URINE YELLOW (YELLOW); *KETONES,URINE 1+ (NEGATIVE); *PROTEIN,URINE 3+ (NEGATIVE); *UROBILINOGEN,URINE 0.2 E.U./dl (NORMAL); LEUKOCYTE ESTERASE ,URINE 3+ (NEGATIVE); NITRITE, URINE NEGATIVE (NEGATIVE); UGLUCOSE NEGATIVE (NEGATIVE)
[2023-10-15 10:38] LABS: BACTERIA,URINE MANY /HPF (NONE SEEN); RBC,URINE 50-80 /HPF (0-3); WBC,URINE TNTC /HPF (0-3)
[2023-10-15 10:39] LABS: SQUAMOUS EPITHELIAL CELL,UR MANY /HPF (NONE SEEN)
[2023-10-15 13:59] LABS: ANISOCYTOSIS 2+; BAND % (MANUAL) 4 % (0-10); EOSINOPHILS % (MANUAL) 38 % (0-8); HYPOCHROMASIA 1+; LYMPHOCYTES % (MANUAL) 26 % (20-40); MONOCYTES % (MANUAL) 21 % (2-10); NEUTROPHILS % (MANUAL) 11 % (42-75); PLATELET ESTIMATE ADEQUATE
[2023-10-15 14:00] LABS: TEAR DROP CELLS 1+
[2023-10-15 16:00] VITALS: BP 97/49; TEMP 98.2; O2SAT 98
[2023-10-15 16:50] VITALS: O2SAT 96
[2023-10-15] MEDS: CEFTRIAXONE 1 G in IV DEXTROSE 5% 50 ML IV SCH (17:27)
[2023-10-15 20:31] VITALS: BP 97/44; TEMP 98.1; O2SAT 98
[2023-10-16 06:00] VITALS: BP 102/46; TEMP 97.8; O2SAT 93
[2023-10-16 06:57] LABS: BASOPHILS # (AUTO) 0.1 K/UL (0.0-0.2); BASOPHILS % (AUTO) 1.2 % (0.0-2.0); HEMATOCRIT 27.7 % (31.2-41.9); HEMOGLOBIN 8.6 g/dL (10.9-14.3); LYMPHOCYTES # (AUTO) 1.6 K/uL (0.8-4.8); LYMPHOCYTES % (AUTO) 25.5 % (20.5-51.5); MEAN CORPUSCULAR HEMOGLOBIN 23.6 uug (24.7-32.8); MEAN CORPUSCULAR HGB CONC 31 g/dL (32.3-35.6); MEAN CORPUSCULAR VOLUME 75.9 fL (75.5-95.3); MONOCYTES # (AUTO) 2.3 K/uL (0.1-1.30); NEUTROPHILS # (AUTO) 0.5 K/uL (1.8-8.9); NEUTROPHILS % (AUTO) 7.4 % (38.5-71.5); PLATELET COUNT (AUTO) 201 K/uL (179-408); RED BLOOD CELL COUNT(AUTO) 3.65 MIL/uL (3.63-4.92); RED CELL DISTRIBUTION WIDTH 22.2 % (12.3-17.7); WHITE BLOOD COUNT (AUTO) 6.5 K/uL (3.8-11.8)
[2023-10-16 07:11] LABS: CALCIUM 12.1 mg/dL (8.5-10.1); CREATININE 6.5 mg/dL (0.6-1.3); POTASSIUM 3.5 mmol/L (3.5-5.1)
[2023-10-16 07:16] LABS: DIFFERENTIAL COMMENT 1; EOSINOPHILS % (AUTO) 30.9 % (0.0-7.0)
[2023-10-16] MEDS: LORATADINE 10 MG TABLET PO SCH (10:04)
[2023-10-16 14:45] LABS: BAND % (MANUAL) 4 % (0-10); LYMPHOCYTES % (MANUAL) 24 % (20-40); MONOCYTES % (MANUAL) 31 % (2-10); NEUTROPHILS % (MANUAL) 8 % (42-75)
[2023-10-16 14:46] LABS: ANISOCYTOSIS 2+; EOSINOPHILS % (MANUAL) 33 % (0-8); HYPOCHROMASIA 2+; PLATELET ESTIMATE ADEQUATE
[2023-10-16 16:09] VITALS: BP 117/52; TEMP 98.3; O2SAT 93
[2023-10-16 19:00] VITALS: BP 90/43; TEMP 98.1; O2SAT 94
[2023-10-17] MEDS: MELATONIN 3 MG TABLET PO SCH (00:36)
[2023-10-17 06:38] VITALS: BP 103/43; TEMP 98.5; O2SAT 92
[2023-10-17 07:09] LABS: CALCIUM 11.7 mg/dL (8.5-10.1); CREATININE 5.8 mg/dL (0.6-1.3); POTASSIUM 3.4 mmol/L (3.5-5.1)
[2023-10-17 08:38] VITALS: BP 98/38; TEMP 98; O2SAT 92
[2023-10-17] MEDS ORDERED: HEPARIN/NS 500 ML ONE (08:53)
[2023-10-17] MEDS ORDERED: HEPARIN SODIUM,PORCINE 1,000 UNITS/ML VIAL ONE (08:53)
[2023-10-17] MEDS ORDERED: LIDOCAINE HCL 1% 20 ML VIAL ONE (08:54)
[2023-10-17] MEDS ORDERED: CALAMINE LOTION 120 ML BOTTLE TOP PRN (10:45)
[2023-10-17 11:09] LABS: *OCCULT BLOOD STOOL NEGATIVE (NEGATIVE)
[2023-10-17 11:47] VITALS: BP 97/42; TEMP 98.2; O2SAT 100
[2023-10-17] MEDS: POTASSIUM CHLORIDE 50 ML IV SCH (14:29)
[2023-10-17 15:10] VITALS: BP 93/39; TEMP 97.7; O2SAT 95
[2023-10-17] MEDS: CEFTRIAXONE 1 G in IV DEXTROSE 5% 50 ML IV SCH (17:23)
[2023-10-17 20:19] VITALS: BP 96/44; TEMP 98.4; O2SAT 92
[2023-10-17] MEDS ORDERED: PROPOFOL 200 MG/20 ML BOTTLE ONE (20:24)
[2023-10-17 21:18] VITALS: O2SAT 93
[2023-10-17] MEDS: APIXABAN 5 MG TABLET GT SCH (21:21)
[2023-10-17] MEDS: ACETAMINOPHEN 325 MG TABLET PO PRN (23:31)
[2023-10-18 06:30] VITALS: BP 108/44; TEMP 97.8; O2SAT 91
[2023-10-18 06:36] LABS: BASOPHILS # (AUTO) 0.1 K/UL (0.0-0.2); BASOPHILS % (AUTO) 1.2 % (0.0-2.0); EOSINOPHILS # (AUTO) 1.5 K/uL (0.0-0.7); EOSINOPHILS % (AUTO) 24.6 % (0.0-7.0); HEMATOCRIT 24.7 % (31.2-41.9); HEMOGLOBIN 7.6 g/dL (10.9-14.3); LYMPHOCYTES # (AUTO) 1.3 K/uL (0.8-4.8); LYMPHOCYTES % (AUTO) 21.3 % (20.5-51.5); MEAN CORPUSCULAR HEMOGLOBIN 23.5 uug (24.7-32.8); MEAN CORPUSCULAR HGB CONC 31 g/dL (32.3-35.6); MEAN CORPUSCULAR VOLUME 76.2 fL (75.5-95.3); MONOCYTES # (AUTO) 1.7 K/uL (0.1-1.30); MONOCYTES % (AUTO) 27.7 % (0.0-11.0); NEUTROPHILS # (AUTO) 1.5 K/uL (1.8-8.9); NEUTROPHILS % (AUTO) 25.2 % (38.5-71.5); PLATELET COUNT (AUTO) 190 K/uL (179-408); RED BLOOD CELL COUNT(AUTO) 3.23 MIL/uL (3.63-4.92); RED CELL DISTRIBUTION WIDTH 21.5 % (12.3-17.7); WHITE BLOOD COUNT (AUTO) 5.9 K/uL (3.8-11.8)
[2023-10-18 06:44] LABS: DIFFERENTIAL COMMENT 1
[2023-10-18 06:52] LABS: BILIRUBIN,TOTAL 0.5 mg/dL (0.2-1.0); CALCIUM 11.5 mg/dL (8.5-10.1); CREATININE 5.8 mg/dL (0.6-1.3); MAGNESIUM 2.8 mg/dL (1.8-2.4); PHOSPHOROUS 3.4 mg/dL (2.5-4.9); POTASSIUM 3.2 mmol/L (3.5-5.1); TOTAL PROTEIN, SERUM 6.2 g/dL (6.4-8.2)
[2023-10-18 12:00] VITALS: O2SAT 91
[2023-10-18 12:48] LABS: BAND % (MANUAL) 3 % (0-10); EOSINOPHILS % (MANUAL) 20 % (0-8); LYMPHOCYTES % (MANUAL) 27 % (20-40); MONOCYTES % (MANUAL) 25 % (2-10); MYELOCYTES % 1 % (0-0); NEUTROPHILS % (MANUAL) 24 % (42-75)
[2023-10-18 12:49] LABS: ANISOCYTOSIS 1+; PLATELET ESTIMATE ADEQUATE; TEAR DROP CELLS 1+
[2023-10-18] MEDS ORDERED: POTASSIUM CHLORIDE 20 MEQ TAB.PRT.SR PO ONE (14:00)
[2023-10-18] MEDS: POTASSIUM CHLORIDE 20 MEQ POWDER PACKET GT ONE (15:52)
[2023-10-18 16:00] VITALS: BP 106/61; TEMP 97.4; O2SAT 97
[2023-10-18 20:00] VITALS: BP 97/43; TEMP 98.3; O2SAT 95
[2023-10-18 21:34] VITALS: O2SAT 93
[2023-10-19 06:00] VITALS: BP 90/37; TEMP 97.7; O2SAT 96
[2023-10-19 06:58] LABS: BASOPHILS # (AUTO) 0.2 K/UL (0.0-0.2); EOSINOPHILS # (AUTO) 1.4 K/uL (0.0-0.7); EOSINOPHILS % (AUTO) 18.5 % (0.0-7.0); HEMATOCRIT 24.5 % (31.2-41.9); HEMOGLOBIN 7.5 g/dL (10.9-14.3); LYMPHOCYTES # (AUTO) 1.6 K/uL (0.8-4.8); LYMPHOCYTES % (AUTO) 20.6 % (20.5-51.5); MEAN CORPUSCULAR HEMOGLOBIN 23.3 uug (24.7-32.8); MEAN CORPUSCULAR HGB CONC 31 g/dL (32.3-35.6); MEAN CORPUSCULAR VOLUME 75.6 fL (75.5-95.3); MONOCYTES # (AUTO) 1.6 K/uL (0.1-1.30); MONOCYTES % (AUTO) 21.7 % (0.0-11.0); NEUTROPHILS # (AUTO) 2.8 K/uL (1.8-8.9); NEUTROPHILS % (AUTO) 37.2 % (38.5-71.5); PLATELET COUNT (AUTO) 168 K/uL (179-408); RED BLOOD CELL COUNT(AUTO) 3.24 MIL/uL (3.63-4.92); RED CELL DISTRIBUTION WIDTH 21.2 % (12.3-17.7); WHITE BLOOD COUNT (AUTO) 7.6 K/uL (3.8-11.8)
[2023-10-19 07:08] LABS: DIFFERENTIAL COMMENT 1
[2023-10-19 07:12] LABS: ALBUMIN 3.2 g/dL (3.4-5.0); BILIRUBIN,TOTAL 0.5 mg/dL (0.2-1.0); CREATININE 3.7 mg/dL (0.6-1.3); MAGNESIUM 2.4 mg/dL (1.8-2.4); PHOSPHOROUS 2.5 mg/dL (2.5-4.9); POTASSIUM 3.5 mmol/L (3.5-5.1); TOTAL PROTEIN, SERUM 6.4 g/dL (6.4-8.2)
[2023-10-19 11:10] LABS: BAND % (MANUAL) 6 % (0-10); EOSINOPHILS % (MANUAL) 13 % (0-8); LYMPHOCYTES % (MANUAL) 23 % (20-40); MONOCYTES % (MANUAL) 19 % (2-10); NEUTROPHILS % (MANUAL) 39 % (42-75)
[2023-10-19 11:11] LABS: ANISOCYTOSIS 2+; HYPOCHROMASIA 1+; PLATELET ESTIMATE ADEQUATE; TEAR DROP CELLS 1+
[2023-10-19 16:12] VITALS: BP 98/37; TEMP 97.9; O2SAT 99
[2023-10-19 19:50] VITALS: BP 103/44; TEMP 97.6; O2SAT 98
[2023-10-20 05:39] VITALS: BP 92/41; TEMP 97.6; O2SAT 96
[2023-10-20 15:42] VITALS: BP 102/42; TEMP 97.8; O2SAT 95
[2023-10-20 20:21] VITALS: BP 95/48; TEMP 98.2; O2SAT 92
[2023-10-21 06:40] VITALS: BP 96/42; TEMP 98; O2SAT 94
[2023-10-21 10:30] VITALS: BP 91/45; TEMP 98.1; O2SAT 93
[2023-10-22 06:35] VITALS: BP 91/39; TEMP 98.4; O2SAT 92
[2023-10-22 07:30] LABS: BASOPHILS # (AUTO) 0.3 K/UL (0.0-0.2); BASOPHILS % (AUTO) 1.9 % (0.0-2.0); EOSINOPHILS # (AUTO) 0.9 K/uL (0.0-0.7); EOSINOPHILS % (AUTO) 6.1 % (0.0-7.0); HEMATOCRIT 26.8 % (31.2-41.9); LYMPHOCYTES # (AUTO) 2.5 K/uL (0.8-4.8); LYMPHOCYTES % (AUTO) 16.9 % (20.5-51.5); MEAN CORPUSCULAR HEMOGLOBIN 22.5 uug (24.7-32.8); MEAN CORPUSCULAR HGB CONC 30 g/dL (32.3-35.6); MEAN CORPUSCULAR VOLUME 75.2 fL (75.5-95.3); MONOCYTES % (AUTO) 13.3 % (0.0-11.0); NEUTROPHILS # (AUTO) 9.1 K/uL (1.8-8.9); NEUTROPHILS % (AUTO) 61.8 % (38.5-71.5); PLATELET COUNT (AUTO) 210 K/uL (179-408); RED BLOOD CELL COUNT(AUTO) 3.57 MIL/uL (3.63-4.92); RED CELL DISTRIBUTION WIDTH 20.6 % (12.3-17.7); WHITE BLOOD COUNT (AUTO) 14.7 K/uL (3.8-11.8)
[2023-10-22 07:37] LABS: DIFFERENTIAL COMMENT 1
[2023-10-22 08:05] LABS: ALBUMIN 3.3 g/dL (3.4-5.0); BILIRUBIN,TOTAL 0.4 mg/dL (0.2-1.0); CALCIUM 10.8 mg/dL (8.5-10.1); CREATININE 4.4 mg/dL (0.6-1.3); MAGNESIUM 2.4 mg/dL (1.8-2.4); PHOSPHOROUS 3.5 mg/dL (2.5-4.9); POTASSIUM 3.6 mmol/L (3.5-5.1); TOTAL PROTEIN, SERUM 6.9 g/dL (6.4-8.2)
[2023-10-22 11:34] LABS: BAND % (MANUAL) 6 % (0-10); EOSINOPHILS % (MANUAL) 8 % (0-8); HYPOCHROMASIA 2+; LYMPHOCYTES % (MANUAL) 21 % (20-40); MONOCYTES % (MANUAL) 7 % (2-10); NEUTROPHILS % (MANUAL) 58 % (42-75); PLATELET ESTIMATE ADEQUATE
[2023-10-22 11:35] LABS: ANISOCYTOSIS 2+
[2023-10-22 11:38] LABS: TEAR DROP CELLS OCC
[2023-10-22 15:50] VITALS: O2SAT 95
[2023-10-22 19:30] VITALS: BP 92/36; TEMP 98.1; O2SAT 93
[2023-10-23 06:37] VITALS: BP 98/46; TEMP 97.6; O2SAT 93
[2023-10-23 07:19] LABS: BASOPHILS # (AUTO) 0.3 K/UL (0.0-0.2); BASOPHILS % (AUTO) 1.9 % (0.0-2.0); EOSINOPHILS # (AUTO) 0.6 K/uL (0.0-0.7); HEMATOCRIT 25.7 % (31.2-41.9); HEMOGLOBIN 7.9 g/dL (10.9-14.3); LYMPHOCYTES # (AUTO) 2.2 K/uL (0.8-4.8); MEAN CORPUSCULAR HEMOGLOBIN 22.8 uug (24.7-32.8); MEAN CORPUSCULAR HGB CONC 31 g/dL (32.3-35.6); MEAN CORPUSCULAR VOLUME 74.9 fL (75.5-95.3); MONOCYTES # (AUTO) 1.6 K/uL (0.1-1.30); MONOCYTES % (AUTO) 11.4 % (0.0-11.0); NEUTROPHILS # (AUTO) 9.3 K/uL (1.8-8.9); NEUTROPHILS % (AUTO) 66.7 % (38.5-71.5); PLATELET COUNT (AUTO) 184 K/uL (179-408); RED BLOOD CELL COUNT(AUTO) 3.44 MIL/uL (3.63-4.92); RED CELL DISTRIBUTION WIDTH 20.3 % (12.3-17.7); WHITE BLOOD COUNT (AUTO) 13.9 K/uL (3.8-11.8)
[2023-10-23 07:26] LABS: DIFFERENTIAL COMMENT 1
[2023-10-23 07:33] LABS: ALBUMIN 3.5 g/dL (3.4-5.0); BILIRUBIN,DIRECT 0.1 mg/dL (0.0-0.2); BILIRUBIN,TOTAL 0.5 mg/dL (0.2-1.0); CALCIUM 10.3 mg/dL (8.5-10.1); CREATININE 3.5 mg/dL (0.6-1.3); MAGNESIUM 2.3 mg/dL (1.8-2.4); PHOSPHOROUS 2.5 mg/dL (2.5-4.9); POTASSIUM 3.1 mmol/L (3.5-5.1); TOTAL PROTEIN, SERUM 6.9 g/dL (6.4-8.2)
[2023-10-23 07:34] LABS: C-REACTIVE PROTEIN 1.63 mg/dL (0.00-0.30)
[2023-10-23 12:34] LABS: BAND % (MANUAL) 3 % (0-10); LYMPHOCYTES % (MANUAL) 20 % (20-40); MONOCYTES % (MANUAL) 10 % (2-10); NEUTROPHILS % (MANUAL) 67 % (42-75); PLATELET ESTIMATE ADEQUATE
[2023-10-23 12:35] LABS: ANISOCYTOSIS 1+; HYPOCHROMASIA 1+; TEAR DROP CELLS 1+
[2023-10-23] MEDS: POTASSIUM CHLORIDE 10 MEQ TAB.PRT.SR PO ONE (13:59)
[2023-10-23 16:41] VITALS: BP 98/48; TEMP 97.7; O2SAT 91
[2023-10-23 19:30] VITALS: BP 115/44; TEMP 97.9; O2SAT 94
[2023-10-23 20:00] VITALS: BP 121/50; TEMP 98.1; O2SAT 95
[2023-10-24 06:08] VITALS: BP 99/52; TEMP 97.8; O2SAT 95
[2023-10-24 06:57] LABS: BASOPHILS # (AUTO) 0.3 K/UL (0.0-0.2); BASOPHILS % (AUTO) 1.8 % (0.0-2.0); EOSINOPHILS # (AUTO) 0.4 K/uL (0.0-0.7); EOSINOPHILS % (AUTO) 2.6 % (0.0-7.0); HEMATOCRIT 24.8 % (31.2-41.9); LYMPHOCYTES # (AUTO) 1.9 K/uL (0.8-4.8); LYMPHOCYTES % (AUTO) 13.8 % (20.5-51.5); MEAN CORPUSCULAR HEMOGLOBIN 22.4 uug (24.7-32.8); MEAN CORPUSCULAR HGB CONC 30 g/dL (32.3-35.6); MEAN CORPUSCULAR VOLUME 75.1 fL (75.5-95.3); MONOCYTES # (AUTO) 1.5 K/uL (0.1-1.30); MONOCYTES % (AUTO) 11.1 % (0.0-11.0); NEUTROPHILS # (AUTO) 9.8 K/uL (1.8-8.9); NEUTROPHILS % (AUTO) 70.7 % (38.5-71.5); PLATELET COUNT (AUTO) 181 K/uL (179-408); RED CELL DISTRIBUTION WIDTH 20.5 % (12.3-17.7); WHITE BLOOD COUNT (AUTO) 13.9 K/uL (3.8-11.8)
[2023-10-24 07:06] LABS: DIFFERENTIAL COMMENT 1; HEMOGLOBIN 7.4 g/dL (10.9-14.3)
[2023-10-24 07:09] LABS: ALBUMIN 3.3 g/dL (3.4-5.0); BILIRUBIN,DIRECT 0.2 mg/dL (0.0-0.2); BILIRUBIN,TOTAL 0.5 mg/dL (0.2-1.0); CALCIUM 11.2 mg/dL (8.5-10.1); CREATININE 4.2 mg/dL (0.6-1.3); MAGNESIUM 2.4 mg/dL (1.8-2.4); POTASSIUM 3.5 mmol/L (3.5-5.1); TOTAL PROTEIN, SERUM 6.6 g/dL (6.4-8.2)
[2023-10-24 07:12] LABS: C-REACTIVE PROTEIN 1.13 mg/dL (0.00-0.30)
[2023-10-24 16:14] VITALS: BP 91/38; TEMP 97.9; O2SAT 96
[2023-10-24 20:59] VITALS: BP 90/40; TEMP 98.1; O2SAT 96
[2023-10-24 22:17] LABS: *OCCULT BLOOD STOOL POSITIVE (NEGATIVE)
[2023-10-25 06:11] VITALS: BP 103/44; TEMP 97.9; O2SAT 95
[2023-10-25 08:07] LABS: *BILIRUBIN,URIN NEGATIVE (NEGATIVE); *BLOOD, URINE 2+ (NEGATIVE); *CLARITY,URINE CLOUDY (CLEAR); *COLOR,URINE YELLOW (YELLOW); *KETONES,URINE TRACE (NEGATIVE); *PROTEIN,URINE 2+ (NEGATIVE); *UROBILINOGEN,URINE 0.2 E.U./dl (NORMAL); LEUKOCYTE ESTERASE ,URINE 3+ (NEGATIVE); NITRITE, URINE NEGATIVE (NEGATIVE); PH,URINE 5.5 (5.0-8.0); UGLUCOSE NEGATIVE (NEGATIVE)
[2023-10-25 08:23] LABS: BACTERIA,URINE FEW /HPF (NONE SEEN); SQUAMOUS EPITHELIAL CELL,UR MANY /HPF (NONE SEEN); WBC,URINE 80-100 /HPF (0-3)
[2023-10-25 08:25] LABS: YEAST,URINE MODERATE /HPF (NONE SEEN)
[2023-10-25 16:00] VITALS: BP 96/44; TEMP 97.8; O2SAT 96
[2023-10-25 20:00] VITALS: TEMP 97.9
[2023-10-26] VITALS: TEMP 98.1
[2023-10-26 04:00] VITALS: TEMP 98
[2023-10-26 06:00] VITALS: TEMP 97.8
[2023-10-26 09:00] VITALS: BP 103/61; TEMP 98.6; O2SAT 95
[2023-10-26] MEDS ORDERED: FLUCONAZOLE 100 MG TABLET PO SCH (10:30)
[2023-10-26] MEDS: MICAFUNGIN SODIUM 100 MG in IV NORMAL SALINE 100 ML IV ONE (13:10)
[2023-10-26 16:16] VITALS: BP 92/46; TEMP 98.1; O2SAT 96
[2023-10-26 20:59] VITALS: BP 95/41; TEMP 98; O2SAT 93
[2023-10-26] MEDS: APIXABAN 2.5 MG TABLET PO SCH (22:33)
[2023-10-27 07:05] LABS: BASOPHILS % (AUTO) 0.3 % (0.0-2.0); EOSINOPHILS # (AUTO) 0.3 K/uL (0.0-0.7); EOSINOPHILS % (AUTO) 2.2 % (0.0-7.0); HEMATOCRIT 25.5 % (31.2-41.9); HEMOGLOBIN 7.7 g/dL (10.9-14.3); LYMPHOCYTES # (AUTO) 1.1 K/uL (0.8-4.8); LYMPHOCYTES % (AUTO) 8.4 % (20.5-51.5); MEAN CORPUSCULAR HGB CONC 30 g/dL (32.3-35.6); MEAN CORPUSCULAR VOLUME 75.7 fL (75.5-95.3); MONOCYTES # (AUTO) 0.9 K/uL (0.1-1.30); MONOCYTES % (AUTO) 7.1 % (0.0-11.0); NEUTROPHILS # (AUTO) 10.7 K/uL (1.8-8.9); PLATELET COUNT (AUTO) 185 K/uL (179-408); RED BLOOD CELL COUNT(AUTO) 3.37 MIL/uL (3.63-4.92); RED CELL DISTRIBUTION WIDTH 20.3 % (12.3-17.7)
[2023-10-27 07:13] LABS: DIFFERENTIAL COMMENT 1
[2023-10-27 07:15] LABS: CALCIUM 11.5 mg/dL (8.5-10.1); CREATININE 3.7 mg/dL (0.6-1.3); MAGNESIUM 2.4 mg/dL (1.8-2.4); PHOSPHOROUS 3.9 mg/dL (2.5-4.9); POTASSIUM 3.1 mmol/L (3.5-5.1)
[2023-10-27 09:00] VITALS: BP 105/56; TEMP 97.6; O2SAT 93
[2023-10-27 12:00] VITALS: BP 109/67; TEMP 97.8; O2SAT 98
[2023-10-27] MEDS: METOCLOPRAMIDE HCL 10 MG TABLET PO PRN (12:43)
[2023-10-27] MEDS: POTASSIUM CHLORIDE 20 MEQ POWDER PACKET PO ONE ×2 (15:35→17:47)
[2023-10-27 19:45] VITALS: BP 95/43; O2SAT 94
[2023-10-27 20:00] VITALS: TEMP 98.4
[2023-10-27] MEDS: IV NORMAL SALINE 250 ML BAG IV ONE (21:07)
[2023-10-28 04:00] VITALS: TEMP 98.3
[2023-10-28 07:54] LABS: BASOPHILS # (AUTO) 0.1 K/UL (0.0-0.2); BASOPHILS % (AUTO) 0.5 % (0.0-2.0); EOSINOPHILS # (AUTO) 0.3 K/uL (0.0-0.7); EOSINOPHILS % (AUTO) 2.6 % (0.0-7.0); HEMATOCRIT 24.1 % (31.2-41.9); LYMPHOCYTES # (AUTO) 1.5 K/uL (0.8-4.8); LYMPHOCYTES % (AUTO) 12.8 % (20.5-51.5); MEAN CORPUSCULAR HEMOGLOBIN 22.6 uug (24.7-32.8); MEAN CORPUSCULAR HGB CONC 30 g/dL (32.3-35.6); MEAN CORPUSCULAR VOLUME 75.9 fL (75.5-95.3); MONOCYTES # (AUTO) 0.9 K/uL (0.1-1.30); MONOCYTES % (AUTO) 7.9 % (0.0-11.0); NEUTROPHILS # (AUTO) 8.8 K/uL (1.8-8.9); NEUTROPHILS % (AUTO) 76.2 % (38.5-71.5); PLATELET COUNT (AUTO) 165 K/uL (179-408); RED BLOOD CELL COUNT(AUTO) 3.17 MIL/uL (3.63-4.92); RED CELL DISTRIBUTION WIDTH 19.8 % (12.3-17.7); WHITE BLOOD COUNT (AUTO) 11.5 K/uL (3.8-11.8)
[2023-10-28 08:05] LABS: ALBUMIN 3.2 g/dL (3.4-5.0); BILIRUBIN,TOTAL 0.5 mg/dL (0.2-1.0); CALCIUM 10.7 mg/dL (8.5-10.1); CREATININE 2.7 mg/dL (0.6-1.3); MAGNESIUM 2.3 mg/dL (1.8-2.4); PHOSPHOROUS 2.4 mg/dL (2.5-4.9); POTASSIUM 3.5 mmol/L (3.5-5.1); TOTAL PROTEIN, SERUM 6.3 g/dL (6.4-8.2)
[2023-10-28 09:10] LABS: DIFFERENTIAL COMMENT 1; HEMOGLOBIN 7.2 g/dL (10.9-14.3)
[2023-10-28 09:13] LABS: C-REACTIVE PROTEIN 1.88 mg/dL (0.00-0.30)
[2023-10-28 15:57] VITALS: BP 96/45; TEMP 97.8; O2SAT 96
[2023-10-28 20:34] VITALS: BP 98/46; TEMP 97.7; O2SAT 94
[2023-10-28 22:20] VITALS: O2SAT 93
[2023-10-29 06:17] VITALS: BP 120/53; TEMP 97.9; O2SAT 95
[2023-10-29 09:33] LABS: ALBUMIN 3.3 g/dL (3.4-5.0); BILIRUBIN,DIRECT 0.1 mg/dL (0.0-0.2); BILIRUBIN,TOTAL 0.5 mg/dL (0.2-1.0); TOTAL PROTEIN, SERUM 6.7 g/dL (6.4-8.2)
[2023-10-29 20:22] VITALS: BP 105/50; TEMP 98.3; O2SAT 95
[2023-10-30 05:48] VITALS: BP 116/50; TEMP 98.1; O2SAT 95
[2023-10-30 06:59] LABS: ALBUMIN 3.2 g/dL (3.4-5.0); BILIRUBIN,TOTAL 0.5 mg/dL (0.2-1.0); CALCIUM 11.9 mg/dL (8.5-10.1); CREATININE 2.7 mg/dL (0.6-1.3); MAGNESIUM 2.3 mg/dL (1.8-2.4); POTASSIUM 3.2 mmol/L (3.5-5.1); TOTAL PROTEIN, SERUM 6.5 g/dL (6.4-8.2)
[2023-10-30 07:00] LABS: BASOPHILS # (AUTO) 0.1 K/UL (0.0-0.2); EOSINOPHILS # (AUTO) 0.2 K/uL (0.0-0.7); EOSINOPHILS % (AUTO) 2.4 % (0.0-7.0); HEMATOCRIT 25.6 % (31.2-41.9); HEMOGLOBIN 7.7 g/dL (10.9-14.3); LYMPHOCYTES # (AUTO) 1.8 K/uL (0.8-4.8); LYMPHOCYTES % (AUTO) 17.5 % (20.5-51.5); MEAN CORPUSCULAR HEMOGLOBIN 22.8 uug (24.7-32.8); MEAN CORPUSCULAR HGB CONC 30 g/dL (32.3-35.6); MEAN CORPUSCULAR VOLUME 75.7 fL (75.5-95.3); MONOCYTES # (AUTO) 0.9 K/uL (0.1-1.30); MONOCYTES % (AUTO) 8.7 % (0.0-11.0); NEUTROPHILS # (AUTO) 7.3 K/uL (1.8-8.9); NEUTROPHILS % (AUTO) 70.4 % (38.5-71.5); PLATELET COUNT (AUTO) 183 K/uL (179-408); RED BLOOD CELL COUNT(AUTO) 3.38 MIL/uL (3.63-4.92); RED CELL DISTRIBUTION WIDTH 19.7 % (12.3-17.7); WHITE BLOOD COUNT (AUTO) 10.3 K/uL (3.8-11.8)
[2023-10-30 07:03] LABS: DIFFERENTIAL COMMENT 1
[2023-10-30] MEDS ORDERED: EPOETIN ALFA 10,000 UNITS/ML VIAL SQ ONE (10:00)
[2023-10-30] MEDS: EPOETIN ALFA-EPBX 10,000 UNIT/ML VIAL SQ ONE (10:16)
[2023-10-30 12:00] VITALS: BP 101/58; TEMP 98.2; O2SAT 96
[2023-10-30 16:00] VITALS: BP 97/58; TEMP 97.8; O2SAT 95
[2023-10-30] MEDS: POTASSIUM CHLORIDE 20 MEQ POWDER PACKET PO ONE (16:19)
== END 2023-10-30 17:30 | disposition home health service (06) | DRG 189 ==
PROVIDERS: ADMIT Physical Medicine & Rehabilitation; ATTEND Physical Medicine & Rehabilitation Pain Medicine
PROC: 5A1D70Z Performance of Urinary Filtration, Intermittent, Less than 6 Hours Per Day (ICD-10-PCS; 2023-09-25)
PROC: 05HB33Z Insertion of Infusion Device into Right Basilic Vein, Percutaneous Approach (ICD-10-PCS; principal; 2023-09-26)
PROC: 0HBRXZZ Excision of Toe Nail, External Approach (ICD-10-PCS; 2023-10-01)
PROC: 0TB13ZX Excision of Left Kidney, Percutaneous Approach, Diagnostic (ICD-10-PCS; 2023-10-06)
PROC: 0JH63XZ Insertion of Tunneled Vascular Access Device into Chest Subcutaneous Tissue and Fascia, Percutaneous Approach (ICD-10-PCS; 2023-10-17)
PROC: 02H633Z Insertion of Infusion Device into Right Atrium, Percutaneous Approach (ICD-10-PCS; 2023-10-17)
PROC: B518ZZA Fluoroscopy of Superior Vena Cava, Guidance (ICD-10-PCS; 2023-10-17)
DX: J96.01 Acute respiratory failure with hypoxia (principal); I21.A1 Myocardial infarction type 2; G93.41 Metabolic encephalopathy; N17.0 Acute kidney failure with tubular necrosis; I50.33 Acute on chronic diastolic (congestive) heart failure; B37.1 Pulmonary candidiasis; A41.9 Sepsis, unspecified organism; J44.1 Chronic obstructive pulmonary disease with (acute) exacerbation; J44.0 Chronic obstructive pulmonary disease with (acute) lower respiratory infection; B49 Unspecified mycosis; D62 Acute posthemorrhagic anemia; D68.59 Other primary thrombophilia; E44.0 Moderate protein-calorie malnutrition; E87.1 Hypo-osmolality and hyponatremia; I48.92 Unspecified atrial flutter; N39.0 Urinary tract infection, site not specified; J98.01 Acute bronchospasm; I12.9 Hypertensive chronic kidney disease with stage 1 through stage 4 chronic kidney disease, or unspecified chronic kidney disease; I48.91 Unspecified atrial fibrillation; N18.9 Chronic kidney disease, unspecified; D72.10 Eosinophilia, unspecified; R73.9 Hyperglycemia, unspecified; E78.5 Hyperlipidemia, unspecified; E87.6 Hypokalemia; E87.70 Fluid overload, unspecified; I48.0 Paroxysmal atrial fibrillation; N32.89 Other specified disorders of bladder; R13.10 Dysphagia, unspecified; R62.7 Adult failure to thrive; I95.1 Orthostatic hypotension; K29.70 Gastritis, unspecified, without bleeding; K76.9 Liver disease, unspecified; K80.20 Calculus of gallbladder without cholecystitis without obstruction; L29.9 Pruritus, unspecified; L60.0 Ingrowing nail; M89.8X9 Other specified disorders of bone, unspecified site; Z68.32 Body mass index [BMI] 32.0-32.9, adult; E66.9 Obesity, unspecified; Z82.3 Family history of stroke; Z87.440 Personal history of urinary (tract) infections; Z91.041 Radiographic dye allergy status; J45.909 Unspecified asthma, uncomplicated; Z93.1 Gastrostomy status; G89.29 Other chronic pain; M19.90 Unspecified osteoarthritis, unspecified site; E03.2 Hypothyroidism due to medicaments and other exogenous substances
CPT/HCPCS: 36415; 36600; 70030-TC; 71045; 74018; 76942; 82785; 83550; 83735; 84100; 84443; 84480; 85025; 85610; 85730; 86140; 86704; 86705; 86706; 86708; 86709; 86803; 87340; 87350; 88329-TC; 90937; 93005; 94640; 94760; 97535-GO-CO; A4606; A4649; A4663; A9150; C1758; J0696; J0885; J1200; J1644; J1815; J2248; J2270; J2405; J2765; J3010; J3480; J3490; J7040; J7512; J8597; P9047; Q9963